=== PATIENT | female | born 1990 | race American Indian/Alaskan Native ===

== ENCOUNTER 2016-11-12 04:24 | Outpatient (CLI) | payer MEDICAID ==
[2016-11-12 05:35] LABS: Bilirubin,Urine NEG (Negative); Blood,Urine NEG (Negative); Ketones,Urine NEG (Negative); Leukocyte Esterase,Urine NEG (Negative); Mucus,Urine 1+ /HPF; Nitrite,Urine NEG (Negative); Protein,Urine <15 mg/dL mg/dL (Negative); Urobilinogen,Urine < 2.0 mg/dL (<2.0)
[2016-11-12 06:59] LABS: Alanine Aminotransferase 11 units/L (7-56); Lactate Dehydrogenase 182 units/L (91-180); Uric Acid 4.2 mg/dL (3.5-7.6)
[2016-11-12] MEDS ORDERED: VISTARIL PO ONE (07:22)
[2016-11-12 07:26] VITALS: BP 120/83
[2016-11-12 07:47] LABS: Basophils % (Auto) 0.3 % (0.0-1.8); Eosinophils % (Auto) 0.6 % (0.0-4.3); Hematocrit 35.9 % (30.3-42.9); Hemoglobin 12.3 gm/dl (10.1-14.3); Mean Corpuscular HGB Conc 34 % (30-34); Mean Corpuscular Hemoglobin 32 pg (28-32); Mean Corpuscular Volume 94 fl (79-97); Platelet Count 148 K/mm3 (140-440); Red Blood Count 3.82 M/mm3 (3.65-5.03); Red Cell Distribution Width 12.5 % (13.2-15.2); White Blood Count 10.4 K/mm3 (4.5-11.0)
--- NOTE | 2016-11-12 12:56 | Ultrasound Report ---
BIOPHYSICAL PROFILE: TECHNIQUE: Transabdominal ultrasound with Doppler interrogation. 2 - breathing movements 2 - movements 2 - posture and tone 2 - Qualitative amniotic fluid volume 8 - TOTAL SCORE OF POSSIBLE 8 Heart Rate (bpm) 146
--- NOTE | 2016-11-12 12:56 | Ultrasound Report ---
OB LIMITED: TECHNIQUE: Transabdominal ultrasound with Doppler interrogation. Gestation: alexandre Position: cephalic Amniotic Fluid: WNL (7-24 cm) PRISCILA = 15.3 cm Placenta: posterior, fundal Placental Grade: II Heart Rate: 146 BPM
== END 2016-11-12 08:00 | disposition home or self-care (01) ==
LOC: TRG 04:24
PROVIDERS: ATTEND Obstetrics & Gynecology
DX: O62.0 Primary inadequate contractions (principal); O77.9 Labor and delivery complicated by fetal stress, unspecified; Z3A.37 37 weeks gestation of pregnancy
CPT/HCPCS: 36415; 59025; 76815; 76819; 81001; 82565; 83615; 84450; 84460; 84550; 85025; Q0177

== ENCOUNTER 2016-11-13 20:53 | Inpatient (IN) | payer MEDICAID ==
[2016-11-13 22:44] LABS: Hematocrit 35.7 % (30.3-42.9); Hemoglobin 12.2 gm/dl (10.1-14.3); Mean Corpuscular HGB Conc 34 % (30-34); Mean Corpuscular Hemoglobin 32 pg (28-32); Mean Corpuscular Volume 93 fl (79-97); Platelet Count 157 K/mm3 (140-440); Red Blood Count 3.83 M/mm3 (3.65-5.03); Red Cell Distribution Width 12.3 % (13.2-15.2); White Blood Count 10.5 K/mm3 (4.5-11.0)
[2016-11-13 23:01] LABS: Alanine Aminotransferase 12 units/L (7-56); Lactate Dehydrogenase 181 units/L (91-180); Uric Acid 4.2 mg/dL (3.5-7.6)
[2016-11-13] MEDS ORDERED: TYLENOL PO PRN (23:06)
[2016-11-13] MEDS ORDERED: COLACE PO PRN (23:06)
[2016-11-13] MEDS ORDERED: MAGNESIUM SULFATE IV ONE (23:16)
[2016-11-13] MEDS ORDERED: MAGNESIUM SULFATE 40GM/1000ML 1,000 ML IV SCH (23:45)
[2016-11-13] MEDS ORDERED: LACTATED RINGERS 1,000 ML IV SCH (23:45)
--- NOTE | 2016-11-14 00:08 | History and Physical Report ---
History of Present Illness Date of examination: 11/14/16 Date of admission: 11/13/16 23:04 Chief complaint: This is a 26 yo at 37+5 weeks admitted for srom at 8pm tonight. Patient reports that while driving she had leaking clear at 8pm after collecting 24 hr urine. Ida was seen yesterday for some initial elevated BP but denies nichole, bv , scotomata nor RUQ pain. She came in and PIH labs weer normal. Awaitng husbands 24hr urine collection in which he will bring. Per the patient labs all normal ( records not available in clinic 12midnight) Per the patient GBS neg will attain records in am Past History Past Medical History: no pertinent history Past Surgical History: no surgical history Family/Genetic History: none Social history: no significant social history - Obstetrical History : 3 Medications and Allergies Allergies Allergy/AdvReac Type Severity Reaction Status Date / Time No Known Allergies Allergy Verified 11/12/16 04:38 Active Meds: Active Medications Acetaminophen (Tylenol) 650 mg PO Q4H PRN PRN Reason: Pain MILD(1-3)/Fever >100.5/NICHOLE Docusate Sodium (Colace) 100 mg PO Q12H PRN PRN Reason: Constipation Ampicillin Sodium (Polycillin/Ns 1 Gm/50 Ml) 50 mls @ 100 mls/hr IV Q4H IMANI PRN Reason: Protocol Lactated Ringer's (Lactated Ringers) 1,000 mls @ 125 mls/hr IV DIRECT IMANI Magnesium Sulfate (Magnesium Sulfate 40gm/1000ml) 1,000 mls @ 50 mls/hr IV DIRECT IMANI PRN Reason: 2 GM/HR Multivitamins/Iron/Calcium ( Vitamin) 1 each PO QDAY IMANI - Vital Signs Vital signs: Vital Signs Pulse BP 104 H 147/111 11/13/16 21:13 11/13/16 21:13 Temp Pulse Resp BP Pulse Ox 98.7 F 90 18 140/97 97 11/13/16 22:00 11/13/16 23:28 11/13/16 22:00 11/13/16 23:28 11/13/16 23:21 - Physical Exam Breasts: Positive: normal Cardiovascular: Regular rate Lungs: Positive: Clear to auscultation, Normal air movement Abdomen: Positive: normal appearance, soft, normal bowel sounds. Negative: distention, tenderness Genitourinary (Female): Positive: normal external genitalia, normal perenium Vulva: both: normal Vagina: Positive: normal moisture Uterus: Positive: normal size, normal contour Adnexa: both: normal Extremities: Positive: normal Deep Tendon Reflex Grade: Normal +2 - Obstetrical FHR: auscultation normal, category 1 Uterine Contraction Monitor Mode: External Cervical Dilatation: 3 Cervical Effacement Percentage: 20 station: -4 Uterine Contraction Pattern: Irregular Uterine Contraction Intensity: Mild Results Result Diagrams: 11/13/16 22:30 11/13/16 22:30 Abnormal lab results 11/13/16 11/13/16 Range/Units 22:30 22:30 RDW 12.3 L (13.2-15.2) % Creatinine 0.5 L (0.7-1.2) mg/dL Lactate Dehydrogenase 181 H (91-180) units/L All other labs normal. Assessment and Plan A/P #1 ADMITTED FOR SROM CLEAR positive pooling and nitrazine + awaiting 24hr urine pih labs neg will start pitocin in am close monitoring expect vaginal delivery
[2016-11-14] MEDS ORDERED: MAGNESIUM SULFATE 4GM/100ML 100 ML IV ONE (01:00)
[2016-11-14] MEDS ORDERED: POLYCILLIN/NS 2 GM/100 ML 100 ML IV ONE (02:23)
[2016-11-14] MEDS ORDERED: POLYCILLIN/NS 2 GM/100 ML 100 ML IV SCH (03:00)
[2016-11-14] MEDS: STADOL IV PRN ×2 (03:14→06:24)
[2016-11-14] MEDS ORDERED: POLYCILLIN/NS 1 GM/50 ML 50 ML IV SCH (04:00)
[2016-11-14] MEDS ORDERED: PITOCin/NS 20 UNIT/1000ML DRIP 1,000 ML IV ONE (06:48)
--- NOTE | 2016-11-14 08:01 | Procedure Note ---
OB Delivery Note - Delivery Date of Delivery: 11/14/16 (5-13oz female @ 0737) Surgeon: WILMER FUENTES Estimated blood loss: 100cc - Vaginal Delivery presentation: vertex Delivery position: OA Intrapartum events: none Delivery induction: none Delivery monitor: external FHT, external uterine Route of delivery: Delivery placenta: spontaneous Delivery cord: 3 umbilical vessels Episiotomy: none Delivery laceration: none Anesthesia: none - A at 1 minute: 8 at 5 minutes: 9 Infant Gender: Female ( viable female in OA postiton over intact perineum. Short cord, cut and placed skin to skin. Spont. placenta, No lacerations on inspections)
[2016-11-14] MEDS ORDERED: PHENERGAN PR PRN (08:02)
[2016-11-14] MEDS ORDERED: PHENERGAN PO PRN (08:02)
[2016-11-14] MEDS ORDERED: ZOFRAN IV PRN (08:02)
[2016-11-14] MEDS ORDERED: DULCOLAX PR PRN (08:02)
[2016-11-14] MEDS ORDERED: DERMOPLAST TP PRN (08:02)
[2016-11-14] MEDS ORDERED: BENADRYL PO PRN (08:02)
[2016-11-14] MEDS ORDERED: TYLENOL PO PRN (08:02)
[2016-11-14] MEDS ORDERED: NORCO 5/325 PO PRN (08:02)
[2016-11-14] MEDS ORDERED: TUCKS PAD TP PRN (08:02)
[2016-11-14] MEDS ORDERED: LANSINOH TP PRN (08:02)
[2016-11-14] MEDS ORDERED: MILK OF MAGNESIA PO PRN (08:02)
[2016-11-14] MEDS ORDERED: SODIUM CHLORIDE FLUSH SYRINGE 10 ML IV NR (09:00)
[2016-11-14] MEDS ORDERED: PITOCin/NS 20 UNIT/1000ML DRIP 1,000 ML IV SCH (09:00)
[2016-11-14] MEDS ORDERED: PRENATAL VITAMIN PO SCH (10:00)
[2016-11-14] MEDS: MOTRIN PO SCH ×2 (18:33→23:55)
[2016-11-14 20:47] LABS: Hematocrit 33.4 % (30.3-42.9); Hemoglobin 11.3 gm/dl (10.1-14.3)
[2016-11-15] MEDS ORDERED: BOOSTRIX IM ONE (06:00)
[2016-11-15] MEDS: MOTRIN PO SCH (06:34)
[2016-11-15] MEDS ORDERED: M-M-R II VACCINE SUB-Q ONE (08:02)
--- NOTE | 2016-11-15 09:41 | Progress Note ---
Assessment and Plan O: VSS AF PP H/H: 11.3/33.4 A: Stable PP Day 1 P: routine orders D/C home Subjective - Subjective Date of service: 11/15/16 Patient reports: appetite normal, voiding normally, pain well controlled, flatus , ambulating normally [place]: doing well, nursing well Objective - Vital Signs Latest vital signs: Vital Signs Temp Pulse Pulse Resp BP BP 11/15/16 08:10 98.1 F 76 16 124/88 11/15/16 01:15 98.5 F 79 18 121/69 11/14/16 16:54 98.3 F 80 18 133/91 Intake and Output 11/14/16 11/15/16 11/15/16 22:59 06:59 14:59 Intake Total 480 740 Output Total 900 Balance -420 740 Intake: Oral 480 Intake, Free Water 740 Output: Urine 900 Void 900 Other: Total, Intake Amount 360 Total, Output Amount 900 # Voids Void 1 - Exam Breasts: Present: deferred Lungs: Present: Normal air movement Abdomen: Present: normal appearance, soft. Absent: distention, tenderness Vulva: both: normal Uterus: Present: normal, firm, fundal height below umbilicus. Absent: bogginess , tenderness Extremities: Present: normal
--- NOTE | 2016-11-15 09:44 | Discharge Summary ---
Providers - Providers Date of Admission: 11/13/16 23:04 Date of discharge: 11/15/16 Attending physician: ZACHARY LEE MD Primary care physician: ZACHARY LEE MD Hospitalization Reason for admission: active labor, IUP at term Delivery: Episiotomy: none Laceration: none Other procedures: none complications: none Discharge diagnosis: IUP at term delivered [place] baby: female Condition at discharge: Good Disposition: DISCHARGED TO HOME OR SELFCARE Plan - Discharge Medications Prescriptions: Ibuprofen [Motrin 600 MG tab] 600 mg PO Q6H #30 tablet - Provider Discharge Summary Activity: routine, no sex for 6 weeks, no heavy lifting 4 weeks, no strenuous exercise Diet: routine Instructions: routine Additional instructions: [] Smoking cessation referral if applicable(refer to patient education folder for contact #) [] Refer to [facility] Booklet Call your doctor immediately for: * Fever > 100.5 * Heavy vaginal bleeding ( >1 pad per hour) * Severe persistent headache * Shortness of breath * Reddened, hot, painful area to leg or breast * Drainage or odor from incision. * Keep incision clean and dry at all times and follow doctor's instructions regarding bathing/showering - Follow up plan Follow up: ZACHARY LEE MD [Primary Care Provider] - WILMER FUENTES CNM [Advanced Practice Nurse] - (RTO 4 weeks )
[2016-11-15] MEDS ORDERED: FLUARIX QUAD 2016-2017(36 MOS+) IM ONE (12:00)
[2016-11-15 13:22] VITALS: BP 120/88
== END 2016-11-15 14:19 | disposition home or self-care (01) | DRG 775 ==
LOC: TRG 20:53 → LD 23:04 → OB 11-14 09:26
PROVIDERS: ADMIT Obstetrics & Gynecology; ATTEND Obstetrics & Gynecology
PROC: 10E0XZZ Delivery of Products of Conception, External Approach (ICD-10-PCS; principal; 2016-11-14)
DX: O42.02 Full-term premature rupture of membranes, onset of labor within 24 hours of rupture (principal); Z3A.37 37 weeks gestation of pregnancy; Z37.0 Single live birth; O69.3XX0 Labor and delivery complicated by short cord, not applicable or unspecified
CPT/HCPCS: 36415; 82565; 83615; 84156; 84450; 84460; 84550; 85014; 85018; 85027; 86850; 86900; 86901; 90471; 90686; 90715; 99211; G0463; J0290; J0595; J2590; J3475; J7120

== ENCOUNTER 2017-06-19 19:50 | Emergency (ER) | payer MEDICAID ==
--- NOTE | 2017-06-20 00:18 | Ultrasound Report ---
FINAL REPORT EXAM: US OB \T\lt; = 14 WEEKS FETUS HISTORY: VAG BLEEDING / PREG COMPARISON: None available. TECHNIQUE: Several real-time grayscale and color Doppler images were obtained. Transvaginal and transabdominal exam. FINDINGS: The uterus measures 10.3 x 5.2 x 7.1 centimeters. Single live IUP. Estimated gestational age 7 weeks 1 day. Estimated delivery date February 04, 2018. heart rate 135 beats per minute. Small subchorionic hemorrhage measuring 1.7 x 0.3 x 0.9 centimeters. The right ovary measures 3.9 x 2.6 x 3.1 centimeters. Within the right ovary there is a hypoechoic avascular structure measuring 1.9 x 1.9 x 2.1 centimeters which may reflect corpus luteum. The left ovary measures 2.6 x 1.8 x 1.2 centimeters. No adnexal masses are demonstrated. At the left uterine body there is a hypoechoic structure possibly representing uterine contraction or fibroid measuring 3.2 x 2.8 x 2.6 centimeters. IMPRESSION: Single live IUP. Estimated gestational age 7 weeks 1 day. Estimated delivery date February 04, 2018. Small subchorionic hemorrhage is present. 2.1 centimeter hypoechoic avascular structure in the right ovary which may reflect corpus luteum. Possible left uterine fibroid versus transient uterine contraction.
--- NOTE | 2017-06-20 01:25 | Emergency Department Report ---
ED HPI - General Chief complaint: Vaginal Bleeding Stated complaint: POSS MISCARRIAGE Source: patient Mode of arrival: Ambulatory Limitations: No Limitations - History of Present Illness MD Complaint: vaginal bleeding -: Sudden Radiation: none Severity: mild Quality: cramping Consistency: intermittent Improves with: none Worsens with: none Associated symptoms: vaginal bleeding, weakness. denies: nausea/vomiting, vaginal discharge, abdominal pain, headache, vision changes, malaise, dysparuenia, rash, shortness of breath, syncope Vaginal bleeding: heavy :: Yes Number of weeks : 7 OB History - Current : no complications OB History - Previous Pregnancies: no complications Pre-jose care: none - Related Data : 2 Para: 1 Previous Rx's Medication Instructions Recorded Last Taken Type Ibuprofen [Motrin 600 MG tab] 600 mg PO Q6H #30 tablet 11/15/16 Unknown Rx Allergies Allergy/AdvReac Type Severity Reaction Status Date / Time No Known Allergies Allergy Verified 11/12/16 04:38 ED Review of Systems ROS: Stated complaint: POSS MISCARRIAGE Other details as noted in HPI Comment: All other systems reviewed and negative ED Past Medical Hx - Past Medical History Previous Medical History?: Yes Hx Hypertension: Yes Hx Congestive Heart Failure: No Hx Diabetes: No Hx Deep Vein Thrombosis: No Hx Renal Disease: No Hx Sickle Cell Disease: No Hx Seizures: No Hx Asthma: No Hx COPD: No Hx HIV: No - Surgical History Past Surgical History?: Yes Additional Surgical History: BREAST CYST REMOVAL - Social History Smoking Status: Never Smoker Substance Use Type: None - Medications Home Medications: Home Medications Medication Instructions Recorded Confirmed Last Taken Type Ibuprofen [Motrin 600 MG tab] 600 mg PO Q6H #30 tablet 11/15/16 Unknown Rx ED Physical Exam - General Limitations: No Limitations General appearance: alert, in no apparent distress - Head Head exam: Present: atraumatic, normocephalic - Eye Eye exam: Present: normal appearance - ENT ENT exam: Present: mucous membranes moist - Neck Neck exam: Present: normal inspection - Respiratory Respiratory exam: Present: normal lung sounds bilaterally. Absent: respiratory distress - Cardiovascular Cardiovascular Exam: Present: regular rate, normal rhythm. Absent: systolic murmur, diastolic murmur, rubs, gallop - GI/Abdominal GI/Abdominal exam: Present: soft, normal bowel sounds - Extremities Exam Extremities exam: Present: normal inspection - Back Exam Back exam: Present: normal inspection - Neurological Exam Neurological exam: Present: alert, oriented X3 - Psychiatric Psychiatric exam: Present: normal affect, normal mood - Skin Skin exam: Present: warm, dry, intact, normal color. Absent: rash ED Course Vital Signs 06/19/17 06/20/17 20:36 00:55 Temperature 98.5 F 98.8 F Pulse Rate 73 69 Respiratory 20 18 Rate Blood Pressure 159/112 142/98 O2 Sat by Pulse 100 100 Oximetry ED Medical Decision Making - Radiology Data Radiology results: report reviewed, image reviewed - Medical Decision Making live iup on US with small subchorionic bleed. Critical care attestation.: If time is entered above; I have spent that time in minutes in the direct care of this critically ill patient, excluding procedure time. ED Disposition Clinical Impression: Subchorionic bleed, Threatened Disposition: - TO HOME OR SELFCARE Is pt being admited?: No Does the pt Need Aspirin: No Condition: Good Instructions: Threatened Miscarriage (ED) Referrals: PRIMARY CARE, [Primary Care Provider] - 3-5 Days Time of Disposition: :
[2017-06-20 01:51] VITALS: BP 159/102
== END 2017-06-20 01:56 | disposition home or self-care (01) ==
LOC: ED 19:50
DX: O20.0 Threatened abortion (principal); O20.8 Other hemorrhage in early pregnancy; I10 Essential (primary) hypertension; Z3A.01 Less than 8 weeks gestation of pregnancy
CPT/HCPCS: 36415; 76801; 76817; 84702; 99284